=== PATIENT | male | born 1975 | race Caucasian/White ===

== ENCOUNTER 2018-05-12 19:26 | Emergency (ER) | payer OTHER ==
[2018-05-12 19:49] VITALS: O2SAT 99
[2018-05-12] MEDS ORDERED: Sodium Chloride 0.9% 1,000 ML IV ONE (20:10)
--- NOTE | 2018-05-12 20:13 | C.PDOC ---
History Of Present Illness 42 y/o male presents to ED for complaints of upper abdominal pain associated with nausea and vomiting. Patient states pain worsens after eating. Denies diarrhea or any other physical complaints. Chief Complaint (Nursing): Abdominal Pain History Per: Patient History/Exam Limitations: no limitations Onset/Duration Of Symptoms: Hrs Current Symptoms Are (Timing): Still Present Location Of Pain/Discomfort: RUQ, LUQ Radiation Of Pain To:: None Quality Of Discomfort: "Pain" Associated Symptoms: Nausea, Vomiting. denies: Fever, Chills, Diarrhea, Urinary Symptoms Exacerbating Factors: Food Alleviating Factors: None Last Bowel Movement: Today Recent travel outside of the [place]: No Past Medical History Reviewed: Historical Data, Nursing Documentation, Vital Signs Vital Signs: Last Vital Signs Temp 98.2 F 05/12/18 19:39 Pulse 81 05/12/18 19:39 Resp 16 05/12/18 19:39 BP 146/91 H 05/12/18 19:39 Pulse Ox 99 05/12/18 22:35 - Medical History PMH: HTN, Hypercholesterolemia Surgical History: No Surg Hx Family History: States: No Known Family Hx - Social History Hx Alcohol Use: Yes Hx Substance Use: No - Immunization History Hx Tetanus Toxoid Vaccination: No Hx Influenza Vaccination: Yes Hx Pneumococcal Vaccination: No Review Of Systems Constitutional: Negative for: Fever, Chills Gastrointestinal: Positive for: Nausea, Vomiting, Abdominal Pain (Upper abdomen) . Negative for: Diarrhea Skin: Negative for: Rash Neurological: Negative for: Weakness, Numbness Physical Exam - Physical Exam Appears: Well, Non-toxic, No Acute Distress Skin: Normal Color, Warm, Dry Head: Atraumatic, Normacephalic Eye(s): bilateral: Normal Inspection, PERRL, EOMI Nose: Normal, No Discharge Oral Mucosa: Moist Neck: Supple Chest: Symmetrical, No Tenderness Cardiovascular: Rhythm Regular, No Murmur Respiratory: Normal Breath Sounds, No Decreased Breath Sounds, No Rales, No Rhonchi, No Wheezing Gastrointestinal/Abdominal: Soft, Tenderness (Epigastric and upper quadrant ), No Guarding, No Rebound Extremity: Normal ROM, No Deformity Extremity: Bilateral: Atraumatic, Normal Color And Temperature, Normal ROM Neurological/Psych: Oriented x3, Normal Speech Gait: Steady ED Course And Treatment - Laboratory Results Result Diagrams: 05/12/18 21:06 05/12/18 21:06 O2 Sat by Pulse Oximetry: 99 (RA) Pulse Ox Interpretation: Normal - CT Scan/US US Abdomen Other Rad Studies (CT/US): Read By Radiologist, Radiology Report Reviewed CT/US Interpretation: EXAM: US Abdomen Limited, Right Upper Quadrant. CLINICAL HISTORY: 42 years old, male; Pain; Abdominal pain; Epigastric; Additional info: Ruq, epigastric pain/. tenderness. TECHNIQUE: Real-time ultrasound of the right upper quadrant with image documentation. COMPARISON: No relevant prior studies available. FINDINGS: Liver: There is diffuse increased echogenicity consistent with steatosis. There is hepatomegaly the liver span is 19 cm. No mass. No intrahepatic bile duct dilation. Gallbladder: Unremarkable. No gallstones. Common bile duct: Unremarkable as visualized. No stones. 4.3 mm. Pancreas: Unremarkable as visualized. Right kidney: Unremarkable. No stones. No solid mass. No hydronephrosis. RIGHT kidney measures 11.3 cm x 5.7 cm x 6.3 cm. IMPRESSION: 1. Hepatomegaly and hepatic steatosis. 2. Otherwise negative examination Medical Decision Making Medical Decision Making: Administered Brntyl, Pepcid, Zofran and IV fluids. Ordered blood work, urinalysis and Abdomen US. Disposition Counseled Patient/Family Regarding: Diagnosis - Disposition Referrals: [facility] [Outside] Disposition: HOME/ ROUTINE Disposition Time: 22:32 Condition: STABLE Additional Instructions: CONTINUE OMEPRAZOLE. Prescriptions: Dicyclomine [Dicyclomine HCl] 10 mg PO TID #14 cap Ondansetron ODT [Zofran ODT] 1 odt PO BID PRN #6 odt PRN Reason: Nausea/Vomiting Sucralfate [Carafate] 1 gm PO BID #20 tab Instructions: Gastritis, Ulcer and Gastritis Diet Forms: [employer] ([place]an) Print Language: YAKUT - POA Present On Arrival: None - Clinical Impression Clinical Impression: Abdominal pain, Gastritis and gastroduodenitis - Scribe Statement The provider has reviewed the documentation as recorded by the Amaya Brand All medical record entries made by the Scribe were at my direction and personally dictated by me. I have reviewed the chart and agree that the record accurately reflects my personal performance of the history, physical exam, medical decision making, and the department course for this patient. I have also personally directed, reviewed, and agree with the discharge instructions and disposition.
[2018-05-12 21:09] LABS: BASO % 0.4 % (0.0-2.0); EOS # 0.1 K/uL (0.0-0.7); EOS % 1.1 % (0.0-4.0); HEMOGLOBIN 14.1 g/dL (12.0-18.0); LYMPH # 2.7 K/uL (1.0-4.3); LYMPH % 42.2 % (20.0-40.0); MEAN CELL VOLUME 89.4 fL (80.0-94.0); MEAN CORPUSCULAR HGB CONC 34.7 g/dL (33.0-37.0); MEAN PLATELET VOLUME 9.6 fL (7.2-11.7); MONO # 0.9 K/uL (0.0-0.8); MONO % 13.4 % (0.0-10.0); NEUT # 2.8 K/uL (1.8-7.0); NEUT % 42.9 % (50.0-75.0); NRBC % 0.1 % (0.0-2.0); RBC 4.56 Mil/uL (4.40-5.90); RED CELL DISTRIBUTION WIDTH 13.2 % (11.5-14.5); WHITE BLOOD COUNT 6.5 K/uL (4.8-10.8)
[2018-05-12 21:32] LABS: ALB/GLOB RATIO 1.6 (1.0-2.1); ALBUMIN 4.6 g/dL (3.5-5.0); ALT/SGPT 52 U/L (21-72); AST/SGOT 32 U/L (17-59); BLOOD UREA NITROGEN 22 mg/dL (9-20); CALCIUM 9.4 mg/dl (8.6-10.4); GFR AFRICAN-AMERICAN > 60; GFR NON-AFRICAN AMERICAN > 60; LIPASE 145 U/L (23-300)
[2018-05-12 22:20] LABS: SQUAMOUS EPITHIAL < 1 /hpf (0-5); URINE BACTERIA RARE (<OCC); URINE BILIRUBIN NEGATIVE (NEGATIVE); URINE BLOOD NEGATIVE (NEGATIVE); URINE CLARITY Clear (Clear); URINE COLOR Yellow (YELLOW); URINE GLUCOSE (UA) NORMAL (Normal); URINE LEUKOCYTE ESTERASE NEG Leu/uL (Negative); URINE PROTEIN NEGATIVE (NEGATIVE); URINE UROBILINOGEN NORMAL mg/dL (0.2-1.0)
[2018-05-12 23:04] VITALS: BP 124/70; PULSE 60; RESP 18; TEMP 98.1
--- NOTE | 2018-05-13 07:37 | US ---
HISTORY: ruq, EPIGASTRIC PAIN/ TENDERNESS COMPARISON: None. TECHNIQUE: Sonographic evaluation of the right upper quadrant abdomen. FINDINGS: LIVER: Liver demonstrates increased echogenicity, likely representing hepatic parenchymal disease or fatty infiltration. This limits evaluation for small masses. No focal large liver mass is identified. No intrahepatic biliary ductal dilatation is identified. Portal vein is patent with normal hepatopetal flow. GALLBLADDER: The gallbladder is physiologically distended. No gallstones, gallbladder wall thickening, or pericholecystic fluid is identified.No sonographic Corona's sign was appreciated during the exam. COMMON BILE DUCT: Normal in caliber measuring 0.4 cm. PANCREAS: The visualized portions are unremarkable in echogenicity. The remainder of the pancreas is obscured by bowel gas. RIGHT KIDNEY: Measures 11.3cm. Unremarkable in echogenicity. No shadowing renal stone, cyst, or hydronephrosis is identified AORTA: No aneurysmal dilatation of the visualized portions. IVC: Visualized portions are unremarkable.. OTHER FINDINGS: None. IMPRESSION: Echogenic liver, likely representing fatty infiltration or hepatic parenchymal disease. Preliminary impression was provided by [facility] [employer]. Findings are concordant.
== END 2018-05-12 23:04 | disposition home or self-care (01) ==
LOC: C.ER 19:26
DX: K29.70 Gastritis, unspecified, without bleeding (principal); K29.90 Gastroduodenitis, unspecified, without bleeding; R10.11 Right upper quadrant pain; R10.12 Left upper quadrant pain; E78.00 Pure hypercholesterolemia, unspecified; I10 Essential (primary) hypertension
CPT/HCPCS: 76705; 80053; 81001; 83690; 85025; 96372; 96374; 96375; 99283; J0500; J2405; J7030